=== PATIENT | male | born 1955 | race Caucasian/White ===

== ENCOUNTER 2018-08-04 15:55 | Emergency (ER) | payer MEDICARE, SELFPAY ==
[~2018-08-04] VITALS: Ht 182.9 cm; Wt 73.6 kg
[2018-08-04 15:58] VITALS: BP 153/82
[2018-08-04] MEDS ORDERED: CARBAMIDE PEROXIDE EAR DROPS 6.5%, 15ML ONE (16:48)
--- NOTE | 2018-08-04 16:55 | NUR ---
instilled debrox at rt ear
[2018-08-04] MEDS ORDERED: CARBAMIDE PEROXIDE EAR DROPS 6.5%, 15ML EACH EAR ONE (17:00)
[2018-08-04] MEDS ORDERED: ACETAMINOPHEN 325 MG TABLET PO ONE (18:00)
[2018-08-04] MEDS ORDERED: ACETAMINOPHEN 325 MG TABLET ONE (18:26)
--- NOTE | 2018-08-04 19:09 | NUR ---
Patient/Caregiver given discharge instructions and they have confirmed that they understand the instructions. Patient ambulatory with steady gait.
== END 2018-08-04 19:10 | disposition home or self-care (01) ==
LOC: ED 18:21
DX: J01.00 Acute maxillary sinusitis, unspecified (principal); H61.23 Impacted cerumen, bilateral
CPT/HCPCS: 69209; 99283

== ENCOUNTER 2020-06-29 15:52 | Emergency (ER) | payer OTHER ==
[~2020-06-29] VITALS: Ht 182.9 cm; Wt 78.5 kg
[2020-06-29 17:20] VITALS: BP 125/77
--- NOTE | 2020-06-29 17:48 | NUR ---
NIGHT GUARD: PT AMBULATORY TO ROOM FROM LOBBY
[2020-06-29] MEDS ORDERED: CEFAZOLIN 1,000 MG IM ONE (18:00)
[2020-06-29] MEDS ORDERED: LIDOCAINE-MPF 1%, 5ML INFIL ONE (18:00)
[2020-06-29] MEDS ORDERED: LIDOCAINE-MPF 1%, 5ML ONE (18:15)
[2020-06-29] MEDS ORDERED: CEFAZOLIN 1,000 MG ONE (18:18)
[2020-06-29] MEDS ORDERED: NEOSPORIN OINT. PKT 1 PACKET ONE (19:27)
[2020-06-29] MEDS ORDERED: BACITRACIN ZINC OINT 500U/GM, 0.9 GM TP ONE (19:30)
== END 2020-06-29 19:48 | disposition home or self-care (01) ==
LOC: ED 19:30
DX: S62.662A Nondisplaced fracture of distal phalanx of right middle finger, initial encounter for closed fracture (principal); S62.652A Nondisplaced fracture of middle phalanx of right middle finger, initial encounter for closed fracture; S62.664A Nondisplaced fracture of distal phalanx of right ring finger, initial encounter for closed fracture; S61.212A Laceration without foreign body of right middle finger without damage to nail, initial encounter; S60.031A Contusion of right middle finger without damage to nail, initial encounter; S60.041A Contusion of right ring finger without damage to nail, initial encounter; W18.30XA Fall on same level, unspecified, initial encounter; Y93.89 Activity, other specified; Y92.69 Other specified industrial and construction area as the place of occurrence of the external cause; Y99.0 Civilian activity done for income or pay
CPT/HCPCS: 12041; 96372; 99284; J0690; 12042